=== PATIENT | male | born 1995 | race Caucasian/White ===

== ENCOUNTER 2016-12-17 08:03 | Emergency (ER) | payer BC ==
[~2016-12-17] VITALS: Ht 180.3 cm; Wt 74.8 kg
[2016-12-17 08:09] VITALS: BP 130/84; PULSE 54; RESP 16; TEMP 98; O2SAT 99
--- NOTE | 2016-12-17 08:13 | NUR ---
Patient to ER bed 6 to gown for evaluation. Side rails up. Report given to ROBIN MEDINA.
--- NOTE | 2016-12-17 08:15 | NUR ---
ER at bedside examining patient.
--- NOTE | 2016-12-17 08:16 | NUR ---
Pt presents to ED c/o L thumb pain s/p closing in door. Pt has decreased ROM and bruising to nail bed. Pt has no loss of sensation to finger.
--- NOTE | 2016-12-17 08:18 | NUR ---
Patient transported to radiology via ambulation, accompanied by rad staff.
--- NOTE | 2016-12-17 08:23 | NUR ---
Pt returned from rad dept tolerated well
[2016-12-17] MEDS ORDERED: IBUPROFEN 800 MG TABLET PO ONE (08:30)
--- NOTE | 2016-12-17 08:38 | NUR ---
Pt medicated tolerated well
--- NOTE | 2016-12-17 08:40 | NUR ---
Thumb spica splint applied.
[2016-12-17 08:46] VITALS: BP 130/84; PULSE 54; RESP 16; TEMP 98; O2SAT 99
--- NOTE | 2016-12-17 08:46 | NUR ---
Patient given written and verbal discharge instructions and verbalizes understanding. ER MD discussed with patient the results and treatment provided. Patient in stable condition. ID arm band removed. Rx of motrin given. Patient educated on pain management and to follow up with PMD. Pain Scale 3. Opportunity for questions provided and answered.
== END 2016-12-17 08:46 | disposition home or self-care (01) ==
LOC: SED 08:07
DX: S62.524A Nondisplaced fracture of distal phalanx of right thumb, initial encounter for closed fracture (principal); R03.0 Elevated blood-pressure reading, without diagnosis of hypertension; X58.XXXA Exposure to other specified factors, initial encounter; Y93.89 Activity, other specified; Y99.8 Other external cause status; Y92.89 Other specified places as the place of occurrence of the external cause
CPT/HCPCS: 73140-TC; 99284

== ENCOUNTER 2020-01-04 21:19 | Emergency (ER) | payer OTHER, BC ==
[~2020-01-04] VITALS: Ht 180.3 cm; Wt 72.6 kg
[2020-01-04 21:35] VITALS: BP_SYST 135
--- NOTE | 2020-01-04 21:35 | NUR ---
Pt ambulatory to bed 8 for evaluation
--- NOTE | 2020-01-04 21:42 | NUR ---
ER Dr. Steiner at bedside examining patient.
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
--- NOTE | 2020-01-04 21:47 | NUR ---
ER at bedside examining patient.
--- NOTE | 2020-01-04 21:50 | NUR ---
XRAY AT BEDSIDE.
[2020-01-04 22:32] VITALS: BP_SYST 122
--- NOTE | 2020-01-04 22:33 | NUR ---
Patient given written and verbal discharge instructions and verbalizes understanding. ER MD discussed with patient the results and treatment provided. Patient in stable condition. ID arm band removed. No Rx given. Patient educated on pain management and to follow up with PMD. Pain Scale 5/10. Opportunity for questions provided and answered. Medication side effect fact sheet provided.
== END 2020-01-04 22:32 | disposition home or self-care (01) ==
LOC: SED 21:19
DX: S63.91XA Sprain of unspecified part of right wrist and hand, initial encounter (principal); F12.90 Cannabis use, unspecified, uncomplicated; V43.52XA Car driver injured in collision with other type car in traffic accident, initial encounter; Y93.89 Activity, other specified; Y92.89 Other specified places as the place of occurrence of the external cause; Y99.8 Other external cause status
CPT/HCPCS: 99283